=== PATIENT | male | born 1945 | race Caucasian/White ===

== ENCOUNTER 2018-11-25 06:38 | Day surgery (SDC) | payer MEDICARE, MEDICAID ==
[~2018-11-25] VITALS: Ht 188 cm; Wt 99.3 kg
[~2018-11-25 06:38] MED LIST: CYCLOPENTOLATE HCL 1% OPHTH DROPS 2ML RIGHTEYE ONE; PHENYLEPHRINE HCL 10% OPHTH DROPS 5ML RIGHTEYE ONE; TROPICAMIDE 1% OPHTH DROPS 15ML RIGHTEYE ONE
[2018-11-25] MEDS ORDERED: LACTATED RINGERS 1,000 ML IV SCH (06:40)
[2018-11-25] MEDS ORDERED: BALANCED SALT IRRIG SOLN COMB1 500ML OP ONE (07:00)
[2018-11-25] MEDS ORDERED: HYDR50TA55 PO (08:51)
[2018-11-25] MEDS ORDERED: CHOL-4 PO (08:51)
[2018-11-25] MEDS ORDERED: MULT-1146 PO (08:51)
[2018-11-25] MEDS ORDERED: VITA400C73 PO (08:51)
[2018-11-25] MEDS ORDERED: DOCU-286 PO (08:51)
[2018-11-25] MEDS ORDERED: P20 PO (08:51)
[2018-11-25] MEDS ORDERED: CHRO400T10 PO (08:51)
[2018-11-25] MEDS ORDERED: ASCO-339 PO (08:51)
[2018-11-25] MEDS ORDERED: ATOR40TA70 PO (08:51)
[2018-11-25] MEDS ORDERED: ZINC50TA69 PO (08:51)
[2018-11-25] MEDS ORDERED: RIVA20TA PO (08:51)
[2018-11-25] MEDS ORDERED: CYAN50005 PO (08:51)
[2018-11-25] MEDS ORDERED: OMEP20TA2 PO (08:51)
[2018-11-25] MEDS ORDERED: FOLI-43 PO (08:51)
[2018-11-25] MEDS ORDERED: DIGO125T82 PO (08:51)
[2018-11-25] MEDS ORDERED: MAGN250T29 PO (08:51)
[2018-11-25] MEDS ORDERED: CARV3.1242 PO (08:51)
[2018-11-25] MEDS ORDERED: ASPI-1393 PO (08:51)
[2018-11-25] MEDS ORDERED: TICA90TA PO (08:51)
[2018-11-25] MEDS ORDERED: GLUC-113 PO (08:51)
[2018-11-25] MEDS ORDERED: HYALURONATE SODIUM 14 MG/ML 0.85ML SYRINGE IO ONE (10:46)
[2018-11-25] MEDS ORDERED: FENTANYL CITRATE/PF 50MCG/ML 2ML VIAL ONE (11:00)
[2018-11-25] MEDS ORDERED: PROPOFOL 200MG/20ML VIAL IV ONE (11:01)
[2018-11-25] MEDS ORDERED: MIDAZOLAM HCL 2 MG/2 ML VIAL ONE (11:01)
[2018-11-25] MEDS ORDERED: PHENYLEPHRINE HCL 2.5% OPHTH DROPS 2ML ONE (14:56)
[2018-11-25] MEDS ORDERED: LIDOCAINE HCL/PF 2% 20 MG/ML 10ML VIAL ONE (14:56)
[2018-11-25] MEDS ORDERED: TETRACAINE 0.5% OPHTH DROPS 4ML ONE (14:56)
[2018-11-25] MEDS ORDERED: TROPICAMIDE 1% OPHTH DROPS 15ML ONE (14:56)
[2018-11-25] MEDS ORDERED: PHENYLEPHRINE HCL 10% OPHTH DROPS 5ML ONE (14:56)
[2018-11-25] MEDS ORDERED: CYCLOPENTOLATE HCL 1% OPHTH DROPS 2ML ONE (14:56)
[2018-11-25] MEDS ORDERED: CIPROFLOXACIN 0.3% OPHTH SOLN 2.5ML ONE (14:56)
[2018-11-25] MEDS ORDERED: PREDNISOLONE ACETATE 1% OPHTH DROPS 1ML ONE (14:56)
[2018-11-25] MEDS ORDERED: BALANCED SALT IRRIG SOLN 15ML ONE (14:56)
== END 2018-11-25 12:40 | disposition home or self-care (01) ==
LOC: OR 06:38
PROVIDERS: ATTEND Ophthalmology
DX: H25.89 Other age-related cataract (principal); M06.9 Rheumatoid arthritis, unspecified; I48.91 Unspecified atrial fibrillation; I25.10 Atherosclerotic heart disease of native coronary artery without angina pectoris; I42.9 Cardiomyopathy, unspecified; Z90.49 Acquired absence of other specified parts of digestive tract; Z98.890 Other specified postprocedural states; Z88.0 Allergy status to penicillin; Z79.899 Other long term (current) drug therapy; Z98.42 Cataract extraction status, left eye; Z79.82 Long term (current) use of aspirin
CPT/HCPCS: 66984; J2250; J2704; J3010; J3490; V2632